=== PATIENT | female | born 1965 | race Caucasian/White ===

== ENCOUNTER 2020-12-15 13:26 | Emergency (ER) | payer MEDICARE, MEDICAID ==
[~2020-12-15] VITALS: Ht 162.6 cm; Wt 95.0 kg
[~2020-12-15 13:26] MED LIST: AMLO10TA80 PO; BENZ100C86 PO; CETI-89 PO; DOCU-138 PO; FAMO20TA8 PO; GUAI600T44 PO; HYDR12.529 PO; LEVO500T2 PO; LOSA25TA26 PO; METO25TA6 PO; PRED10TA PO; PREG75CA PO
[2020-12-15 13:28] VITALS: BP 141/75
[2020-12-15] MEDS ORDERED: CEPH500C2 MT (14:02)
[2020-12-15] MEDS ORDERED: SULF1TAB48 MT (14:02)
== END 2020-12-15 14:12 | disposition home or self-care (01) ==
LOC: ER 13:29
DX: L02.811 Cutaneous abscess of head [any part, except face] (principal); J45.909 Unspecified asthma, uncomplicated; E11.9 Type 2 diabetes mellitus without complications; E78.00 Pure hypercholesterolemia, unspecified; Z88.8 Allergy status to other drugs, medicaments and biological substances; Z90.710 Acquired absence of both cervix and uterus; Z98.890 Other specified postprocedural states
CPT/HCPCS: 99282

== ENCOUNTER → 2021-07-16 | Outpatient (CLI) | payer MEDICARE, MEDICAID ==
[~2021-07-16] MED LIST changes: +ALBU90AE IH; +AZIT500T8 MT; +CEPH500C2 MT; +CITA40TA11 PO; +DULO20CA18 PO; +HYDR25TA PO; -LEVO500T2 PO; +MED4 MT; +METF-416 PO; +MONT10TA21 PO; +PRAV10TA35 PO; +PREG150C PO; +SULF1TAB48 MT
== END | disposition home or self-care (01) ==
LOC: LAB 10:16
PROVIDERS: ATTEND Neurological Surgery
DX: Z01.812 Encounter for preprocedural laboratory examination (principal); Z20.822 Contact with and (suspected) exposure to COVID-19
CPT/HCPCS: 87426

== ENCOUNTER 2021-07-17 05:28 | Inpatient (IN) | payer MEDICARE, MEDICAID ==
[2021-07-17] VITALS (49 sets, daily range): BP systolic 64–142; BP diastolic 39–70
[~2021-07-17] VITALS: Ht 162.6 cm; Wt 94.8 kg
[~2021-07-17 05:28] MED LIST changes: -AZIT500T8 MT; -BENZ100C86 PO; -CEPH500C2 MT; -CETI-89 PO; -FAMO20TA8 PO; -GUAI600T44 PO; -HYDR12.529 PO; -LOSA25TA26 PO; -MED4 MT; -METO25TA6 PO; -PRED10TA PO; -PREG75CA PO; -SULF1TAB48 MT
[2021-07-17 06:23] LABS: CHLORIDE 105 mEq/L (98-107); INR 1.1; PROTHROMBIN TIME 11.3 sec (9.6-11.0)
[2021-07-17 06:25] LABS: BASOPHILS % 0.9 % (0.0-2.0); HEMATOCRIT. 45.4 % (36.0-48.0); HEMOGLOBIN. 15.4 g/dL (12.0-16.0); MEAN CORPUSCULAR VOLUME 88.6 fL (81.0-99.0); MEAN PLATELET VOLUME 8.3 fl (7.4-10.4); MONOCYTES % 5.7 % (2.0-8.0); NEUTROPHILS % 42.4 % (40.0-76.0); PLATELET 314 x1000/uL (130-400); RED BLOOD CELL COUNT 5.12 mill/uL (4.2-5.4); RED CELL DISTRIBUTION WIDTH 13.4 % (11.6-14.6)
[2021-07-17] MEDS ORDERED: THROMBIN (BOVINE) 5000 UNITS/VIAL TOP ONE (06:36)
[2021-07-17] MEDS ORDERED: LIDOCAINE HCL/EPINEPHRINE 1%-EPI 1:100,000 20 ML VIAL ONE (06:36)
[2021-07-17] MEDS ORDERED: GENTAMICIN SULF 40MG/ML 2ML VIAL ONE (06:36)
[2021-07-17 06:40] LABS: CLARITY URINE CLEAR (CLEAR); COLOR URINE YELLOW (YELLOW); KETONES URINE NEGATIVE (NEGATIVE); LEUKOCYTE ESTERASE URINE 2+ (NEGATIVE); NITRITE URINE NEGATIVE (NEGATIVE); OCCULT BLOOD URINE NEGATIVE (NEGATIVE); PROTEIN URINE 1+ (NEGATIVE); SPECIFIC GRAVITY URINE 1.019 (1.005-1.030); UROBILINOGEN URINE 0.2 E.U./dL (0.2-1.0)
[2021-07-17] MEDS ORDERED: SODIUM CHLORIDE 0.9% 1,000 ML IV SCH (07:20)
[2021-07-17] MEDS ORDERED: MIDAZOLAM HCL 2 MG/2 ML VIAL ONE (10:41)
[2021-07-17] MEDS ORDERED: PROPOFOL 200MG/20ML VIAL IV ONE (10:41)
[2021-07-17] MEDS ORDERED: FENTANYL CITRATE/PF 50MCG/ML 2ML VIAL ONE (10:41)
[2021-07-17] MEDS ORDERED: NEOSTIGMINE METHYLSULFATE 1MG/ML 10 ML VIAL ONE (10:41)
[2021-07-17] MEDS ORDERED: GLYCOPYRROLATE 0.2 MG/ML 2ML VIAL ONE ×2 (10:42→12:01)
[2021-07-17] MEDS ORDERED: ONDANSETRON HCL 4MG/2ML INJ ONE (10:53)
[2021-07-17] MEDS ORDERED: NALOXONE HCL 0.4MG/ML VIAL IV PRN (11:30)
[2021-07-17] MEDS ORDERED: HYDROMORPHONE HCL/PF 2MG/ML CPJ IV PRN (11:45)
[2021-07-17] MEDS ORDERED: LABETALOL 5MG/ML SYR 20 MG/4 ML SYRINGE IV PRN (11:45)
[2021-07-17] MEDS ORDERED: ONDANSETRON HCL 4MG/2ML INJ IV PRN (11:45)
[2021-07-17] MEDS ORDERED: MEPERIDINE HCL/PF 25MG/ML CPJ IV PRN (11:45)
[2021-07-17] MEDS ORDERED: MORPHINE SULFATE 2 MG/ML CPJ (NOT FOR IM USE) IV PRN (12:00)
[2021-07-17] MEDS ORDERED: HYDROMORPHONE HCL/PF 2MG/ML (OR) ONE (12:14)
[2021-07-17] MEDS ORDERED: DIPHENHYDRAMINE INJ IV PRN (12:45)
[2021-07-17] MEDS ORDERED: NALOXONE INJ IV PRN (12:45)
[2021-07-17] MEDS ORDERED: HYDROMORPHONE PCA 10MG/50ML IV PRN (13:00)
[2021-07-17] MEDS: DEXAMETHASONE 4MG/ML 1ML VIAL IV SCH ×2 (13:33→17:07)
[2021-07-17] MEDS: DEXT 5%/LACTATED RINGERS 1,000 ML IV SCH ×2 (13:33→21:30)
[2021-07-17] MEDS ORDERED: CEFAZOLIN SODIUM 1000MG/VIAL IV SCH (14:00)
[2021-07-17] MEDS: CEFAZOLIN 1000MG PREMIX 50 ML IV SCH ×2 (14:16→21:29)
[2021-07-17] MEDS: NICARDIPINE 100 MG in SODIUM CHLORIDE 0.9% 60 ML IV PRN (14:16)
[2021-07-17] MEDS: ONDANSETRON INJ IV PRN (15:23)
[2021-07-17] MEDS ORDERED: DEXTROSE 50% WATER 50ML SYRINGE IV PRN (16:30)
[2021-07-17] MEDS: BLOOD SUGAR DIAGNOSTIC STRIP TEST SCH ×2 (16:51→21:33)
[2021-07-17] MEDS: INSULIN LISPRO 100 UNITS/ML SUBCUT SCH ×2 (17:11→21:32)
[2021-07-17] MEDS ORDERED: IPRATROPIUM/ALBUTEROL 0.5-3(2.5)MG/3ML NEB HHN PRN (17:30)
[2021-07-18] VITALS (95 sets, daily range): BP systolic 61–162; BP diastolic 51–131
[2021-07-18] MEDS: DEXAMETHASONE 4MG/ML 1ML VIAL IV SCH ×3 (00:42→13:09)
[2021-07-18] MEDS: CEFAZOLIN 1000MG PREMIX 50 ML IV SCH (06:22)
[2021-07-18] MEDS: INSULIN LISPRO 100 UNITS/ML SUBCUT SCH ×4 (06:22→20:38)
[2021-07-18] MEDS: BLOOD SUGAR DIAGNOSTIC STRIP TEST SCH ×4 (06:22→20:32)
[2021-07-18] MEDS: NICARDIPINE 100 MG in SODIUM CHLORIDE 0.9% 60 ML IV PRN ×2 (06:23→20:37)
[2021-07-18] MEDS: DEXT 5%/LACTATED RINGERS 1,000 ML IV SCH ×4 (08:00→20:36)
[2021-07-18] MEDS ORDERED: IPRATROPIUM/ALBUTEROL 0.5-3(2.5)MG/3ML NEB HHN PRN (10:00)
[2021-07-18 11:06] LABS: BG CARBOXYHEMOGLOBIN 0.3 % (0.5-1.5); BG DEOXYHEMOGLOBIN 2.4 % (0.0-5.0); BG FRACTION INSPIRED OXYGEN 100; BG HCO3 ACT 23.7 mmol/L (22.0-26.0); BG METHEMOGLOBIN 0.3 % (0.0-1.5); BG OXYGEN SATURATION 97.6 % (92.0-98.5); BG PCO2 35.6 mmHg (35.0-45.0); BG PH 7.441 (7.350-7.450); BG PO2 98.2 mmHg (75.0-100.0); BG SAMPLE SITE ALINE; BG TOTAL HEMOGLOBIN 13.9 g/dL (12.0-18.0); BG TOTAL RESPIRATORY RATE 22 b/min; BG VENT MODE MASK - NRB
[2021-07-18] MEDS ORDERED: DEXAMETHASONE 4MG/ML 1ML VIAL IV SCH (12:00)
[2021-07-18] MEDS ORDERED: DEXTROSE 50% WATER 50ML SYRINGE IV PRN (14:15)
[2021-07-18] MEDS: IPRATROPIUM/ALBUTEROL 0.5-3(2.5)MG/3ML NEB HHN SCH ×2 (14:30→20:23)
[2021-07-19] VITALS (83 sets, daily range): BP systolic 111–198; BP diastolic 46–165
[2021-07-19] MEDS: IPRATROPIUM/ALBUTEROL 0.5-3(2.5)MG/3ML NEB HHN SCH ×4 (01:43→20:47)
[2021-07-19] MEDS: BLOOD SUGAR DIAGNOSTIC STRIP TEST SCH ×4 (06:04→20:03)
[2021-07-19] MEDS: INSULIN LISPRO 100 UNITS/ML SUBCUT SCH ×4 (06:08→20:07)
[2021-07-19 06:24] LABS: BASOPHILS % 0.1 % (0.0-2.0); HEMATOCRIT. 39.8 % (36.0-48.0); HEMOGLOBIN. 13.2 g/dL (12.0-16.0); LYMPHOCYTES % 10.8 % (20.0-50.0); MEAN CORPUSCULAR HEMOGLOBIN 29.4 pg (28.0-32.0); MEAN CORPUSCULAR VOLUME 88.7 fL (81.0-99.0); MEAN PLATELET VOLUME 8.4 fl (7.4-10.4); MONOCYTES % 3.2 % (2.0-8.0); NEUTROPHILS % 85.9 % (40.0-76.0); PLATELET 310 x1000/uL (130-400); RED BLOOD CELL COUNT 4.49 mill/uL (4.2-5.4); RED CELL DISTRIBUTION WIDTH 13.8 % (11.6-14.6)
[2021-07-19 06:32] LABS: CHLORIDE 106 mEq/L (98-107)
[2021-07-19] MEDS: NICARDIPINE 100 MG in SODIUM CHLORIDE 0.9% 60 ML IV PRN (07:58)
[2021-07-19] MEDS: DEXT 5%/LACTATED RINGERS 1,000 ML IV SCH ×3 (07:59→18:05)
[2021-07-19] MEDS: ONDANSETRON INJ IV PRN (08:01)
[2021-07-19] MEDS: HYDROCHLOROTHIAZIDE 25MG TABLET PO SCH (10:50)
[2021-07-19] MEDS: AMLODIPINE 10MG TABLET PO SCH (10:50)
[2021-07-19 12:00] LABS: BG BASE EXCESS 0.6 mmol/L (-2.0-2.0); BG CARBOXYHEMOGLOBIN 0.3 % (0.5-1.5); BG DEOXYHEMOGLOBIN 12.1 % (0.0-5.0); BG METHEMOGLOBIN 0.2 % (0.0-1.5); BG OXYGEN SATURATION 87.8 % (92.0-98.5); BG OXYHEMOGLOBIN 87.4 % (94.0-97.0); BG PCO2 34.7 mmHg (35.0-45.0); BG PH 7.458 (7.350-7.450); BG PO2 49.4 mmHg (75.0-100.0); BG SAMPLE SITE ALINE; BG TOTAL HEMOGLOBIN 13.7 g/dL (12.0-18.0); BG VENT MODE NASAL CANNULA
[2021-07-19] MEDS ORDERED: FUROSEMIDE 20MG/2ML VIAL IVP NR (12:30)
[2021-07-19] MEDS: BUDESONIDE 0.5MG/2ML NEB HHN SCH ×2 (13:21→20:47)
[2021-07-19] MEDS: CEFTRIAXONE 2 G in DEXTROSE 5% WATER 50 ML IV SCH (14:33)
[2021-07-19] MEDS: MONTELUKAST SODIUM 10MG TABLET PO SCH (18:04)
[2021-07-19] MEDS: HYDRALAZINE 20MG/ML VIAL IV PRN (19:18)
[2021-07-20] VITALS: BP 140/67
[2021-07-20] MEDS: IPRATROPIUM/ALBUTEROL 0.5-3(2.5)MG/3ML NEB HHN SCH ×4 (03:45→21:05)
[2021-07-20 04:00] VITALS: BP 147/73
[2021-07-20] MEDS: BLOOD SUGAR DIAGNOSTIC STRIP TEST SCH ×4 (06:13→20:32)
[2021-07-20 08:21] VITALS: BP 136/78
[2021-07-20] MEDS: INSULIN LISPRO 100 UNITS/ML SUBCUT SCH ×4 (08:43→20:40)
[2021-07-20] MEDS: HYDROCHLOROTHIAZIDE 25MG TABLET PO SCH (08:44)
[2021-07-20] MEDS: AMLODIPINE 10MG TABLET PO SCH (08:44)
[2021-07-20] MEDS: DEXT 5%/LACTATED RINGERS 1,000 ML IV SCH ×3 (08:46→20:36)
[2021-07-20] MEDS: BUDESONIDE 0.5MG/2ML NEB HHN SCH ×2 (12:04→21:07)
[2021-07-20 12:10] VITALS: BP 126/52
[2021-07-20] MEDS: CEFTRIAXONE 2 G in DEXTROSE 5% WATER 50 ML IV SCH (14:17)
[2021-07-20] MEDS ORDERED: HYDROCODONE/ACETAMINOPHEN 5/325MG TABLET PO PRN (14:30)
[2021-07-20 15:07] LABS: BG BASE EXCESS 4.8 mmol/L (-2.0-2.0); BG CARBOXYHEMOGLOBIN 0.3 % (0.5-1.5); BG DEOXYHEMOGLOBIN 3.2 % (0.0-5.0); BG FRACTION INSPIRED OXYGEN 100; BG METHEMOGLOBIN 0.3 % (0.0-1.5); BG OXYGEN SATURATION 96.8 % (92.0-98.5); BG OXYHEMOGLOBIN 96.2 % (94.0-97.0); BG PCO2 36.9 mmHg (35.0-45.0); BG PH 7.498 (7.350-7.450); BG PO2 85.3 mmHg (75.0-100.0); BG SAMPLE SITE RIGHT RADIAL; BG TOTAL HEMOGLOBIN 14.3 g/dL (12.0-18.0); BG VENT MODE HIGH FLOW
[2021-07-20 16:06] VITALS: BP 144/72
[2021-07-20] MEDS: MONTELUKAST SODIUM 10MG TABLET PO SCH (17:07)
[2021-07-20 20:41] VITALS: BP 119/56
[2021-07-21 00:09] VITALS: BP 136/78
[2021-07-21] MEDS: IPRATROPIUM/ALBUTEROL 0.5-3(2.5)MG/3ML NEB HHN SCH ×4 (03:26→20:30)
[2021-07-21 04:00] VITALS: BP 151/87
[2021-07-21] MEDS: HYDRALAZINE 20MG/ML VIAL IV PRN (05:41)
[2021-07-21] MEDS: DEXT 5%/LACTATED RINGERS 1,000 ML IV SCH ×2 (05:41→08:28)
[2021-07-21 05:50] LABS: BASOPHILS % 0.1 % (0.0-2.0); EOSINOPHILS % 0.7 % (0.0-5.0); HEMATOCRIT. 41.8 % (36.0-48.0); HEMOGLOBIN. 14.2 g/dL (12.0-16.0); LYMPHOCYTES % 38.6 % (20.0-50.0); MEAN CORPUSCULAR VOLUME 88.6 fL (81.0-99.0); MEAN PLATELET VOLUME 8.3 fl (7.4-10.4); MONOCYTES % 7.6 % (2.0-8.0); PLATELET 304 x1000/uL (130-400); RED BLOOD CELL COUNT 4.72 mill/uL (4.2-5.4); RED CELL DISTRIBUTION WIDTH 13.5 % (11.6-14.6)
[2021-07-21 05:53] LABS: CHLORIDE 104 mEq/L (98-107)
[2021-07-21] MEDS: BLOOD SUGAR DIAGNOSTIC STRIP TEST SCH ×4 (07:07→20:58)
[2021-07-21] MEDS: BUDESONIDE 0.5MG/2ML NEB HHN SCH ×2 (08:06→20:30)
[2021-07-21 08:14] VITALS: BP 128/68
[2021-07-21] MEDS: HYDROCHLOROTHIAZIDE 25MG TABLET PO SCH (08:27)
[2021-07-21] MEDS: AMLODIPINE 10MG TABLET PO SCH (08:27)
[2021-07-21] MEDS: INSULIN LISPRO 100 UNITS/ML SUBCUT SCH ×4 (08:28→20:57)
[2021-07-21] MEDS ORDERED: METHYLPREDNISOLONE SOD SUCC 125 MG/2 ML VIAL IV ONE (11:30)
[2021-07-21] MEDS ORDERED: POTASSIUM CHLORIDE 20MEQ TABLET SR PO NR (12:15)
[2021-07-21 12:22] VITALS: BP 146/90
[2021-07-21] MEDS: SODIUM CHLORIDE 0.9% 1,000 ML IV SCH ×2 (12:37→21:06)
[2021-07-21] MEDS: CEFTRIAXONE 2 G in DEXTROSE 5% WATER 50 ML IV SCH (13:56)
[2021-07-21 16:09] VITALS: BP 144/84
[2021-07-21] MEDS: MONTELUKAST SODIUM 10MG TABLET PO SCH (16:32)
[2021-07-21] MEDS ORDERED: IOHEXOL-350 100 ML BOTTLE ONE (17:38)
[2021-07-21 20:00] VITALS: BP 136/73
[2021-07-21] MEDS: HYDROCODONE/ACETAMINOPHEN 5/325MG TABLET PO PRN (20:57)
[2021-07-22] VITALS: BP 152/81
[2021-07-22] MEDS: IPRATROPIUM/ALBUTEROL 0.5-3(2.5)MG/3ML NEB HHN SCH ×2 (01:50→08:16)
[2021-07-22 04:00] VITALS: BP 120/64
[2021-07-22] MEDS: BLOOD SUGAR DIAGNOSTIC STRIP TEST SCH ×4 (06:08→20:32)
[2021-07-22 06:44] LABS: CHLORIDE 106 mEq/L (98-107)
[2021-07-22] MEDS: INSULIN LISPRO 100 UNITS/ML SUBCUT SCH ×4 (07:50→20:32)
[2021-07-22 07:54] VITALS: BP 166/96
[2021-07-22] MEDS: BUDESONIDE 0.5MG/2ML NEB HHN SCH (08:16)
[2021-07-22] MEDS: HYDROCHLOROTHIAZIDE 25MG TABLET PO SCH (09:16)
[2021-07-22] MEDS: AMLODIPINE 10MG TABLET PO SCH (09:16)
[2021-07-22] MEDS: SODIUM CHLORIDE 0.9% 1,000 ML IV SCH (10:50)
[2021-07-22 12:00] VITALS: BP 129/69
[2021-07-22] MEDS: CEFTRIAXONE 2 G in DEXTROSE 5% WATER 50 ML IV SCH (13:30)
[2021-07-22 16:00] VITALS: BP 151/73
[2021-07-22] MEDS: MONTELUKAST SODIUM 10MG TABLET PO SCH (17:20)
[2021-07-22 20:00] VITALS: BP 153/88
[2021-07-23] VITALS: BP 142/82
[2021-07-23] MEDS: HYDROCODONE/ACETAMINOPHEN 5/325MG TABLET PO PRN ×3 (01:23→13:45)
[2021-07-23 04:00] VITALS: BP 145/88
[2021-07-23] MEDS: BLOOD SUGAR DIAGNOSTIC STRIP TEST SCH ×3 (06:03→16:58)
[2021-07-23] MEDS: HYDRALAZINE 20MG/ML VIAL IV PRN (06:04)
[2021-07-23] MEDS: AMLODIPINE 10MG TABLET PO SCH (08:08)
[2021-07-23] MEDS: HYDROCHLOROTHIAZIDE 25MG TABLET PO SCH (08:08)
[2021-07-23] MEDS: INSULIN LISPRO 100 UNITS/ML SUBCUT SCH ×3 (08:09→16:58)
[2021-07-23 08:27] VITALS: BP 149/86
[2021-07-23 12:00] VITALS: BP 159/81
[2021-07-23] MEDS: CEFTRIAXONE 2 G in DEXTROSE 5% WATER 50 ML IV SCH (13:45)
[2021-07-23 16:00] VITALS: BP 147/90
[2021-07-23] MEDS: MONTELUKAST SODIUM 10MG TABLET PO SCH (17:07)
[2021-07-23] MEDS ORDERED: MED4 MT (17:30)
[2021-07-23] MEDS ORDERED: AZIT500T8 MT (17:30)
[2021-07-23 17:52] VITALS: BP 147/90
== END 2021-07-23 18:45 | disposition home or self-care (01) | DRG 471 ==
LOC: OR 05:28 → MICUNO 05:29 → 6WST 07-19 21:35 → 7WST 07-22 09:45 → 7EST 07-23 10:18
PROVIDERS: ADMIT Internal Medicine; ATTEND Internal Medicine
PROC: 0RG10A0 Fusion of Cervical Vertebral Joint with Interbody Fusion Device, Anterior Approach, Anterior Column, Open Approach (ICD-10-PCS; principal; 2021-07-17)
PROC: 0RB30ZZ Excision of Cervical Vertebral Disc, Open Approach (ICD-10-PCS; 2021-07-17)
PROC: 01N10ZZ Release Cervical Nerve, Open Approach (ICD-10-PCS; 2021-07-17)
PROC: 4A11X4G Monitoring of Peripheral Nervous Electrical Activity, Intraoperative, External Approach (ICD-10-PCS; 2021-07-17)
PROC: 5A0945A Assistance with Respiratory Ventilation, 24-96 Consecutive Hours, High Flow/Velocity Cannula (ICD-10-PCS; 2021-07-19)
DX: M48.02 Spinal stenosis, cervical region (principal); G82.50 Quadriplegia, unspecified; J96.00 Acute respiratory failure, unspecified whether with hypoxia or hypercapnia; J69.0 Pneumonitis due to inhalation of food and vomit; M50.022 Cervical disc disorder at C5-C6 level with myelopathy; M47.12 Other spondylosis with myelopathy, cervical region; J98.11 Atelectasis; N39.0 Urinary tract infection, site not specified; E78.5 Hyperlipidemia, unspecified; I10 Essential (primary) hypertension; M47.22 Other spondylosis with radiculopathy, cervical region; J45.909 Unspecified asthma, uncomplicated; E11.9 Type 2 diabetes mellitus without complications; E87.6 Hypokalemia; R53.81 Other malaise; R26.9 Unspecified abnormalities of gait and mobility; Z20.822 Contact with and (suspected) exposure to COVID-19; Z82.49 Family history of ischemic heart disease and other diseases of the circulatory system
CPT/HCPCS: 36415; 36600; 71045; 71275; 72040; 72141; 76000; 80048; 81003; 82375; 82805; 82962; 83036; 83880; 84145; 85025; 86850; 86900; 87426; 88311; 93970; 94640; 95863; 95925; 95926; 95928; 95929; 97110; 97116; 97162; 97166; 97530; 97535; C1713; J0360; J0690; J0696; J1100; J1170; J1580; J1815; J1940; J2250; J2270; J2405; J2704; J2710; J3010; J3490; J7030; J7040; J7050; J7060; J7121; J7626; L0172; Q9967; U0003; U0005; C1762